=== PATIENT | female | born 1965 | race Caucasian/White ===

== ENCOUNTER → 2017-01-27 | Outpatient (CLI) | payer BC ==
--- NOTE | 2017-01-27 11:33 | REPMRS ---
Patient History Family history of prostate cancer in maternal grandfather at age 50 or over. Reductions of both breasts, 1993. Taking hormonal contraceptives for 4 years. Digital Woman Screen Mammo: January 27, 2017 - Exam #: [id number] Bilateral CC and MLO view(s) were taken. Technologist: Shasta Berry, Technologist Prior study comparison: February 08, 2016, digital woman screen mammo performed at [facility]. February 02, 2015, digital woman screen mammo performed at [facility]. FINDINGS: The breast tissue is heterogeneously dense. This may lower the sensitivity of mammography. There has been no change in the appearance of the mammogram from the prior studies. There is a moderate amount of residual fibroglandular tissue which is fairly symmetric. There is no interval development of dominant mass, areas of architectural distortion, or clustered microcalcification typical of malignancy. ASSESSMENT: BI-RADS/ACR category 1 mammogram. Negative. Recommendation Routine screening mammogram in 1 year (for women over age 40). This mammogram was interpreted with the aid of an FDA-approved computer-aided dectection system. Electronically Signed By: Juan Jose Mckeon MD 01/27/17 [id number]
== END ==
LOC: M WHC 10:30
PROVIDERS: ATTEND Nurse Practitioner Women's Health
DX: Z12.31 Encounter for screening mammogram for malignant neoplasm of breast (principal); Z79.3 Long term (current) use of hormonal contraceptives

== ENCOUNTER → 2017-01-27 | Outpatient (REF) | payer BC ==
[2017-01-27 12:37] LABS: FOLATE > 24.0 NG/ML (>5.4)
[2017-01-27 12:51] LABS: ALBUMIN 3.9 GM/DL (3.2-5.2); ALBUMIN/GLOBULIN RATIO 1.15 (1.00-1.93); ALKALINE PHOSPHATASE 23 U/L (45-117); ALT/SGPT 18 U/L (12-78); ANION GAP 8 MEQ/L (8-16); AST/SGOT 15 U/L (15-37); BILIRUBIN,TOTAL 0.9 MG/DL (0.2-1.0); BLOOD UREA NITROGEN 12 MG/DL (7-18); CALCIUM LEVEL 9.2 MG/DL (8.5-10.1); CARBON DIOXIDE LEVEL 27 MEQ/L (21-32); CHLORIDE LEVEL 105 MEQ/L (98-107); CHOLESTEROL LEVEL 209 MG/DL (<200); CREATININE FOR GFR 0.65 MG/DL (0.55-1.02); FERRITIN 25 NG/ML (8-252); FREE T4 1.05 NG/DL (0.76-1.46); GLOMERULAR FILTRATION RATE > 60.0 (>58); GLUCOSE, FASTING 89 MG/DL (70-105); POTASSIUM SERUM 4.6 MEQ/L (3.5-5.1); SODIUM LEVEL 140 MEQ/L (136-145); TOTAL PROTEIN 7.3 GM/DL (6.4-8.2); TRIGLYCERIDES LEVEL 149 MG/DL (<150)
== END ==
LOC: M SFHCPLAZ 09:40
PROVIDERS: ATTEND Family Medicine
DX: E66.3 Overweight (principal); R53.83 Other fatigue
CPT/HCPCS: 36415; 80053; 80061; 82728; 82746; 83036; 83540; 84439; 84443; 84466; G0123

== ENCOUNTER → 2018-02-02 | Outpatient (CLI) | payer BC | LOC: M WHC 09:08 | DX: Z12.31 Encounter for screening mammogram for malignant neoplasm of breast (principal) | CPT/HCPCS: 77067 ==

== ENCOUNTER → 2018-02-02 | Outpatient (REF) | payer BC ==
[2018-02-06 14:14] LABS: HPV HYBRID CAPTURE II Negative (Negative)
== END ==
LOC: M SFHCWAGY 09:18
DX: Z12.4 Encounter for screening for malignant neoplasm of cervix (principal)
CPT/HCPCS: G0123

== ENCOUNTER → 2019-02-01 | Outpatient (REF) | payer BC | LOC: M SFHCWAGY 10:43 | PROVIDERS: ATTEND Nurse Practitioner Women's Health | DX: Z12.4 Encounter for screening for malignant neoplasm of cervix (principal) ==

== ENCOUNTER → 2019-02-01 | Outpatient (CLI) | payer BC ==
--- NOTE | 2019-02-01 10:49 | REP ---
BILATERAL SCREENING DIGITAL MAMMOGRAM WITH 3D TOMOSYNTHESIS: There are no palpable abnormalities or other breast complaints. The the patient states she had a clinical breast examination 02/19 19. The the patient states she performs self-breast examinations 12 times per year. The Tyrer-Cuzick Score is: 8.2% . Comparison studies are 09/19/2013, 02/20/2016 and 02/02/2018. There are scattered areas of fibroglandular density. There is no dominant mass, micro calcific cluster or architectural distortion that would indicate malignancy. There are no additional findings on 3D tomosynthesiss. There is no change from the prior study. Impression: BIRADS/ACR category 1 mammogram. Negative. Recommendation: Routine annual screening mammography. Because of the increased breast density, annual adjunctive breast MRI in addition to screening mammography is recommended. These can be performed at alternating six month intervals. This mammogram was interpreted with the aid of a FDA approved computer-aided detection system. A. Negative mammogram reports should not delay biopsy if a dominant or clinically suspicious mass is present. B. Not all breast cancers are identified by mammography or tomosynthesis. C. Adenosis and dense breasts may obscure an underlying neoplasm. Patient letter M1. Electronically Signed by Juan Jose Tinoco MD 02/01/2019 10:41 A
== END ==
LOC: M WHC 09:15
PROVIDERS: ATTEND Nurse Practitioner Women's Health
DX: Z12.31 Encounter for screening mammogram for malignant neoplasm of breast (principal)

== ENCOUNTER → 2020-02-11 | Outpatient (CLI) | payer BC ==
--- NOTE | 2020-02-27 17:28 | REPMRS ---
Patient History The patient states she had a clinical breast exam in 02/2020. Family history of prostate cancer at age 50 or over in maternal grandfather. Reductions of both breasts, 1993. Took hormonal contraceptives for 35 years. Digital Woman Screen Mammo: February 11, 2020 - Exam #: [id number] Bilateral CC and MLO view(s) were taken. Technologist: Sneha Almaguer, Technologist Prior study comparison: February 01, 2019, bilateral digital woman screen mammo performed at [facility]. February 02, 2018, bilateral digital woman screen mammo performed at [facility]. January 27, 2017, digital woman screen mammo performed at [facility]. FINDINGS: There are scattered fibroglandular densities. The Volpara volumetric breast density category is:B. There has been no change in the appearance of the mammogram from the prior studies. There is a mild amount of scattered fibroglandular density which is fairly symmetric. There is no interval development of dominant mass, architectural distortion, or grouped microcalcification suggestive of malignancy. 3-D tomosynthesis shows no additional findings. Assessment: BI-RADS/ACR category 1 mammogram. Negative Mammogram. Recommendation Routine screening mammogram of both breasts in 1 year (for women over age 40). This patient's Lifetime Breast Cancer Risk is estimated at 7.9 %. This mammogram was interpreted with the aid of an FDA-approved computer-aided dectection system. Electronically Signed By: Jesse Carrasquillo MD 02/27/20 [id number]
== END ==
LOC: M WHC 13:37
PROVIDERS: ATTEND Nurse Practitioner Women's Health
DX: Z12.31 Encounter for screening mammogram for malignant neoplasm of breast (principal); Z92.0 Personal history of contraception

== ENCOUNTER → 2020-02-11 | Outpatient (REF) | payer BC | LOC: M SFHCWAGY 11:19 | PROVIDERS: ATTEND Nurse Practitioner Women's Health | DX: Z12.4 Encounter for screening for malignant neoplasm of cervix (principal) ==

== ENCOUNTER → 2020-12-24 | Outpatient (REF) | payer BC ==
[2020-12-24 10:37] LABS: BASO # 0.1 10^3/uL (0.0-0.2); BASO % 0.8 % (0.0-1.0); EOS # 0.4 10^3/uL (0.0-0.5); EOS % 4.7 % (0.0-3.0); HEMATOCRIT 40.3 % (36.0-47.0); HEMOGLOBIN 13.6 g/dl (12.0-15.5); LYMPH # 2.2 10^3/uL (1.5-5.0); LYMPH % 25.7 % (24.0-44.0); MEAN CORPUSCULAR HEMOGLOBIN 32.6 pg (27.0-33.0); MEAN CORPUSCULAR HGB CONC 33.7 g/dl (32.0-36.5); MEAN CORPUSCULAR VOLUME 96.6 fl (80.0-96.0); MONO # 0.7 10^3/uL (0.0-0.8); MONO % 7.8 % (2.0-8.0); NEUTROPHILS # 5.1 10^3/uL (1.5-8.5); NEUTROPHILS % 60.6 % (36.0-66.0); PLATELET COUNT, AUTOMATED 391 10^3/uL (150-450); RED BLOOD COUNT 4.17 10^6/uL (4.00-5.40); WHITE BLOOD COUNT 8.4 10^3/uL (4.0-10.0)
[2020-12-24 11:09] LABS: THYROID STIMULATING HORMONE 1.19 uIU/ML (0.358-3.740)
[2020-12-24 11:10] LABS: FOLLICLE STIMULATING HORMONE 96.9 mIU/mL; LUTEINIZING HORMONE 35.8 mIU/mL
== END ==
LOC: M PLALAB 08:00
PROVIDERS: ATTEND Nurse Practitioner Women's Health
DX: N95.1 Menopausal and female climacteric states (principal); R10.2 Pelvic and perineal pain

== ENCOUNTER → 2021-02-16 | Outpatient (CLI) | payer BC ==
--- NOTE | 2021-02-16 09:09 | REPMRS ---
Patient History The patient states she had a clinical breast exam in January 2021. Family history of prostate cancer at age 50 or over in maternal grandfather. Reductions of both breasts, 1993. Took hormonal contraceptives for 35 years. Patient states no breast complaints today. Patient has signed MRS History Sheet. Digital Woman Screen Mammo: February 16, 2021 - Exam #: [id number] Bilateral CC and MLO view(s) were taken. Technologist: Key Laura, Technologist Prior study comparison: February 11, 2020, bilateral digital woman screen mammo performed at [facility]. February 01, 2019, bilateral digital woman screen mammo performed at [facility]. FINDINGS: There are scattered fibroglandular densities. Screening. Digital screening (2D) mammography was performed bilaterally in the CC and MLO projections. Additionally, breast tomosynthesis (3D mammography) was performed bilaterally in the CC and MLO projections. Todays exam was compared to the prior exam/exams. By history, the patient has no complaints of a palpable breast abnormality or other significant breast complaints. The breasts are unchanged in size and shape. There are no davidson-soft tissue densities or spiculated masses. There is no internal architectural distortion. There are no suspicious davidson-calcific clusters. Skin thickening or nipple retraction is not present. IMPRESSION: BI-RADS Category 2- Benign Findings. There is no evidence of malignant alteration of the breasts. Followup examination recommended in one year. The Volpara volumetric breast density category is B, there are scattered areas of fibroglandular densities. This mammogram was read with the assistance of [employer],an FDA approved computer aided detection system for mammography. The lifetime Tyrer-Cuzick score is 7.7 % Negative x-ray reports should not delay surgical consultation if a dominant or clinically suspicious mass is present. Not all breast cancers can be identified by mammography. Therefore, we recommend that you continue to perform regular breast self-examination and physical examination and then promptly contact your physician of any concerns or changes. Adenosis and dense breasts may obscure an underlying neoplasm. Assessment: BI-RADS/ACR category 2 mammogram. Benign Findings. Recommendation Routine screening mammogram of both breasts in 1 year. Electronically Signed By: Michael Mendoza DO 02/16/21 [id number]
== END ==
LOC: M WHC 07:59
PROVIDERS: ATTEND Nurse Practitioner Women's Health
DX: Z12.31 Encounter for screening mammogram for malignant neoplasm of breast (principal)

== ENCOUNTER → 2021-02-16 | Outpatient (REF) | payer BC | LOC: M SFHCWAGY 12:52 | PROVIDERS: ATTEND Nurse Practitioner Women's Health | DX: Z12.4 Encounter for screening for malignant neoplasm of cervix (principal) ==

== ENCOUNTER → 2022-02-21 | Outpatient (REF) | payer BC | LOC: M PLALAB 09:23 | PROVIDERS: ATTEND Nurse Practitioner Family | DX: Z12.4 Encounter for screening for malignant neoplasm of cervix (principal); R87.610 Atypical squamous cells of undetermined significance on cytologic smear of cervix (ASC-US) | CPT/HCPCS: 87624; G0123 ==

== ENCOUNTER → 2022-02-21 | Outpatient (CLI) | payer BC | LOC: M WHC 08:05 | PROVIDERS: ATTEND Nurse Practitioner Family | DX: Z12.31 Encounter for screening mammogram for malignant neoplasm of breast (principal) ==

== ENCOUNTER → 2023-01-27 | Outpatient (REF) | payer BC | LOC: M SFHCWAGY 13:06 | PROVIDERS: ATTEND Nurse Practitioner Family | DX: Z12.4 Encounter for screening for malignant neoplasm of cervix (principal) ==

== ENCOUNTER → 2023-01-27 | Outpatient (CLI) | payer BC | LOC: M WHC 07:23 | PROVIDERS: ATTEND Nurse Practitioner Family | DX: Z12.31 Encounter for screening mammogram for malignant neoplasm of breast (principal) ==

== ENCOUNTER → 2023-02-03 | Outpatient (CLI) | payer BC | LOC: M WHC 06:57 | PROVIDERS: ATTEND Nurse Practitioner Family | DX: N95.0 Postmenopausal bleeding (principal) ==

== ENCOUNTER → 2023-02-09 | Outpatient (REF) | payer BC | LOC: M SFHCWAGY 13:38 | PROVIDERS: ATTEND Nurse Practitioner Family | DX: N85.00 Endometrial hyperplasia, unspecified (principal) ==

== ENCOUNTER → 2024-02-07 | Outpatient (CLI) | payer BC | LOC: M WHC 12:55 | PROVIDERS: ATTEND Nurse Practitioner Family | DX: Z12.31 Encounter for screening mammogram for malignant neoplasm of breast (principal); R92.323 Mammographic fibroglandular density, bilateral breasts ==

== ENCOUNTER → 2024-02-07 | Outpatient (REF) | payer BC ==
[2024-02-10 12:33] LABS: HPV APTIMA Not Detected (Not Detected)
== END ==
LOC: M SFHCWAGY 13:03
PROVIDERS: ATTEND Nurse Practitioner Family
DX: Z12.4 Encounter for screening for malignant neoplasm of cervix (principal)
CPT/HCPCS: 87624; G0123

== ENCOUNTER → 2025-02-17 | Outpatient (CLI) | payer BC | LOC: M WHC 14:58 | PROVIDERS: ATTEND Nurse Practitioner Family | DX: Z12.31 Encounter for screening mammogram for malignant neoplasm of breast (principal); R92.313 Mammographic fatty tissue density, bilateral breasts ==

== ENCOUNTER → 2025-02-17 | Outpatient (REF) | payer BC ==
[2025-02-19 13:52] LABS: HPV APTIMA Not Detected (Not Detected)
== END ==
LOC: M PLALAB 15:57
PROVIDERS: ATTEND Nurse Practitioner Family
DX: Z12.4 Encounter for screening for malignant neoplasm of cervix (principal); R82.71 Bacteriuria; N95.2 Postmenopausal atrophic vaginitis
CPT/HCPCS: 87086; 87624; G0123